=== PATIENT | female | born 1995 | race Two or more races ===

== ENCOUNTER 2016-11-03 13:04 | Emergency (ER) | payer OTHER ==
[~2016-11-03] VITALS: Ht 157.5 cm; Wt 90.0 kg
[2016-11-03 13:08] VITALS: BP 134/83
== END 2016-11-03 15:09 | disposition home or self-care (01) ==
LOC: ED 15:03
DX: R07.2 Precordial pain (principal); R42 Dizziness and giddiness
CPT/HCPCS: 71010; 93005; 99284